=== PATIENT | female | born 1980 | race Hispanic/Latino ===

== ENCOUNTER 2023-03-18 22:32 | Emergency (ER) | payer BC ==
[~2023-03-18] VITALS: Ht 177.8 cm; Wt 196.4 kg
[2023-03-18] MEDS ORDERED: SODIUM CHLORIDE 0.9% 1000ML 1,000 ML IV STA (22:44)
[2023-03-18] MEDS ORDERED: ONDANSETRON HCL INJ 2MG/ML 2ML 2 MG/ML VIAL IV ONE (22:45)
[2023-03-18] MEDS ORDERED: FAMOTIDINE 20 MG/2 ML VIAL IV ONE ×2 (22:45→23:33)
[2023-03-18] MEDS ORDERED: KETOROLAC TROMETHAMINE 30 MG/ML VIAL IV ONE (22:45)
[2023-03-18] MEDS ORDERED: KETOROLAC TROMETHAMINE 30 MG/ML VIAL ONE (23:33)
[2023-03-18] MEDS ORDERED: ONDANSETRON HCL INJ 2MG/ML 2ML 2 MG/ML VIAL ONE (23:33)
[2023-03-18] MEDS ORDERED: SODIUM CHLORIDE 0.9% 1000ML 1,000 ML ONE (23:33)
[2023-03-18] MEDS ORDERED: TYLENOL325 MG PO (23:41)
[2023-03-18] MEDS ORDERED: IBUPROFEN200 MG PO (23:41)
== END 2023-03-19 00:12 | disposition home or self-care (01) ==
LOC: FSED 22:44
DX: R10.30 Lower abdominal pain, unspecified (principal); M54.50 Low back pain, unspecified
CPT/HCPCS: 74176; 99284; J1885; J2405; J7030

== ENCOUNTER 2024-08-14 09:52 | Observation (INO) | payer OTHER ==
[~2024-08-14] VITALS: Ht 177.8 cm; Wt 184.2 kg
[~2024-08-14 09:52] MED LIST: ACETAMINOPHEN325 M1 PO; AIRSUPRA 90-810.7 GM INH; ASCORBIC ACID500 MG PO; AZITHROMYCIN250 MG PO; BENZONATATE100 MG PO; CITRACAL-D3 ER1 EACH PO; CLONIDINE HCL0.2 MG PO; COLACE100 M1 PO; DAPTOMYCIN1000 MG/10 IV; DAPTOMYCIN500 MG IV; FEROSUL325 MG PO; FERROUS SULFAT325 MG PO; FUROSEMIDE40 MG PO; IBUPROFEN200 MG PO; MAG-OXIDE400 MG PO; METFORMIN HCL500 MG PO; METOCLOPRAMIDE10 MG PO; MIRALAX17 GM PO; MOUNJARO2.5 MG/0.5 INJ; ONDANSETRON ODT4 MG PO; ONE DAILY PLUS1 EAC1 PO; POTASSIUM CHLO20 ME1 PO; PROVENTIL HFA6.7 GM INH; SENNA S TABLET1 EACH PO; SERTRALINE HCL25 MG PO; TRANEXAMIC ACI650 MG PO; TRIAMCINOLONE A15 G3 TOP; TYLENOL325 MG PO; ULTRAM 50MG50 MG PO; ZINC SULFATE50 M1 PO
[2024-08-14 10:11] VITALS: TEMP 98.6
[2024-08-14] MEDS: MAGNESIUM/ALUMINUM/SIMETHICONE 30 ML UDC PO ONE (11:53)
[2024-08-14] MEDS: ASPIRIN 325 MG TAB PO ONE (12:15)
[2024-08-14] MEDS ORDERED: SODIUM CHLORIDE FLUSH 10 ML SYR INJ PRN (12:15)
[2024-08-14] MEDS: ASPIRIN 81 MG CHEW TAB PO ONE (12:16)
[2024-08-14] MEDS: FAMOTIDINE 20 MG TAB PO SCH (12:20)
[2024-08-14 15:40] VITALS: BP 149/88; PULSE 71; RESP 18; RESP 20; O2SAT 98
[2024-08-14] MEDS ORDERED: ESCITALOPRAM OXA5 MG PO (16:03)
[2024-08-14 16:43] VITALS: BP 152/92; PULSE 58; RESP 18; TEMP 98.1; O2SAT 100
[2024-08-14 20:00] VITALS: BP 161/55; PULSE 76; RESP 18; TEMP 98.5; O2SAT 100
[2024-08-14 21:00] VITALS: BP 161/55; PULSE 76; RESP 18; TEMP 98.5; O2SAT 100
[2024-08-15] VITALS: BP 161/93; PULSE 77; RESP 18; TEMP 97.8; O2SAT 99
[2024-08-15 04:00] VITALS: BP 144/76; PULSE 63; RESP 20; TEMP 97.7; O2SAT 99
[2024-08-15 07:22] VITALS: BP 154/77; PULSE 71; RESP 17; TEMP 97.8; O2SAT 98
[2024-08-15 07:49] LABS: CREATINE KINASE 45 IU/L (29-168)
[2024-08-15 08:00] LABS: TROPONIN I < 0.001 ng/mL (0-0.300)
[2024-08-15 08:06] VITALS: BP 154/77; PULSE 71; RESP 17; TEMP 97.8; O2SAT 98
[2024-08-15 08:18] LABS: CHOL/HDL RATIO 4.1 (3.0-3.6)
[2024-08-15] MEDS: ASPIRIN 81 MG ENTERIC COATED PO SCH (09:27)
[2024-08-15] MEDS: LISINOPRIL 10 MG TAB PO ONE (10:34)
[2024-08-15 10:54] VITALS: BP 128/69; PULSE 67; RESP 19; TEMP 97.9; O2SAT 100
[2024-08-15] MEDS ORDERED: MUPIROCIN 2% OINT 22 GM TUBE TOP SCH (12:00)
== END 2024-08-15 11:39 | disposition home or self-care (01) ==
LOC: FSED 10:01 → ERHOLD 12:06 → MED/SURG2 16:18
PROVIDERS: ADMIT Internal Medicine; ATTEND Internal Medicine
DX: I16.0 Hypertensive urgency (principal); I10 Essential (primary) hypertension; F41.0 Panic disorder [episodic paroxysmal anxiety]; R07.9 Chest pain, unspecified; R51.9 Headache, unspecified; Z63.5 Disruption of family by separation and divorce; D64.9 Anemia, unspecified; R94.31 Abnormal electrocardiogram [ECG] [EKG]; E11.9 Type 2 diabetes mellitus without complications; Z79.84 Long term (current) use of oral hypoglycemic drugs; E66.01 Morbid (severe) obesity due to excess calories; Z68.43 Body mass index [BMI] 50.0-59.9, adult; Z79.899 Other long term (current) drug therapy
CPT/HCPCS: 36415; 70450; 71045; 80053; 80061; 80307; 81003; 81025; 82550; 82553; 84484 ×2; 85025; 85379; 93005; 99252; 99284; G0378 ×2

== ENCOUNTER 2025-02-19 22:05 | Emergency (ER) | payer OTHER ==
[~2025-02-19] VITALS: Ht 177.8 cm; Wt 189.6 kg
[~2025-02-19 22:05] MED LIST changes: +ESCITALOPRAM OXA5 MG PO
[2025-02-19 22:12] VITALS: PULSE 120; RESP 20; TEMP 96.8
[2025-02-19] MEDS ORDERED: DONNATAL/LIDOCAINE/MAALOX 30 ML SUSP PO ONE (22:30)
[2025-02-19] MEDS: BELLADONNA ALK/PHENOBARBITAL 5 ML UDC PO ONE (22:52)
[2025-02-19] MEDS: LIDOCAINE VISC 2% SOLN 15 ML UDC PO ONE (22:52)
[2025-02-19] MEDS: MAGNESIUM/ALUMINUM/SIMETHICONE 30 ML UDC PO ONE (22:52)
[2025-02-19] MEDS: KETOROLAC TROMETHAMINE 30 MG/ML VIAL IV STA (22:53)
[2025-02-19] MEDS: ONDANSETRON HCL INJ 2MG/ML 2ML 2 MG/ML VIAL IV STA (22:53)
[2025-02-19] MEDS: FAMOTIDINE 20 MG/2 ML VIAL IV SCH (22:53)
[2025-02-19] MEDS ORDERED: IOPAMIDOL 370 MG/ML 100 ML INFUS..BTL INJ ONE (23:15)
[2025-02-19] MEDS: POTASSIUM CHLORIDE 20 MEQ TAB CR PO ONE (23:19)
[2025-02-20] MEDS ORDERED: Morphine 2mg Syringe 2 MG/ML SYR ONE (00:52)
[2025-02-20] MEDS: LACTATED RINGER'S 1,000 ML INJ STA (00:57)
[2025-02-20] MEDS: Morphine 4mg INJECTION 4 MG/ML INJ IV ONE (00:58)
[2025-02-20 02:22] VITALS: BP 140/68; PULSE 91; RESP 18; TEMP 98; O2SAT 96
== END 2025-02-20 02:22 | disposition home or self-care (01) ==
LOC: FSED 22:19
DX: R10.13 Epigastric pain (principal); K29.70 Gastritis, unspecified, without bleeding; R11.0 Nausea; E87.6 Hypokalemia; I10 Essential (primary) hypertension; E11.65 Type 2 diabetes mellitus with hyperglycemia; D64.9 Anemia, unspecified; K21.9 Gastro-esophageal reflux disease without esophagitis; G47.33 Obstructive sleep apnea (adult) (pediatric); F41.9 Anxiety disorder, unspecified; E66.01 Morbid (severe) obesity due to excess calories
CPT/HCPCS: 74177; 80053; 84484; 85025; 93005; 96374; 96375; 99284; J1885; J2270 ×2; J2405; J7121; Q9967

== ENCOUNTER 2025-08-06 08:24 | Emergency (ER) | payer OTHER ==
[~2025-08-06] VITALS: Ht 177.8 cm; Wt 197.1 kg
[2025-08-06 08:30] VITALS: RESP 18; TEMP 97.2
[2025-08-06] MEDS ORDERED: METHOCARBAMOL500 MG PO (08:50)
[2025-08-06] MEDS ORDERED: HYDROCODON-ACE1 EA11 PO (08:51)
[2025-08-06 09:05] VITALS: PULSE 102; O2SAT 96
== END 2025-08-06 09:05 | disposition home or self-care (01) ==
LOC: FSED 08:47
DX: M54.50 Low back pain, unspecified (principal); S39.82XA Other specified injuries of lower back, initial encounter; W07.XXXA Fall from chair, initial encounter; Y92.89 Other specified places as the place of occurrence of the external cause; I10 Essential (primary) hypertension; E11.9 Type 2 diabetes mellitus without complications; D64.9 Anemia, unspecified; K21.9 Gastro-esophageal reflux disease without esophagitis; F41.9 Anxiety disorder, unspecified; G47.33 Obstructive sleep apnea (adult) (pediatric)
CPT/HCPCS: 99284

== ENCOUNTER 2025-09-18 20:29 | Emergency (ER) | payer OTHER ==
[~2025-09-18] VITALS: Ht 177.8 cm; Wt 192.3 kg
[~2025-09-18 20:29] MED LIST changes: +HYDROCODON-ACE1 EA11 PO; +METHOCARBAMOL500 MG PO
[2025-09-18] MEDS: ONDANSETRON HCL INJ 2MG/ML 2ML 2 MG/ML VIAL IV STA (21:50)
[2025-09-18] MEDS: ACETAMINOPHEN 325 MG TAB PO ONE (21:52)
[2025-09-18] MEDS: SODIUM CHLORIDE 0.9% 1000ML 1,000 ML IV ONE (21:53)
[2025-09-18] MEDS ORDERED: IOPAMIDOL 370 MG/ML 100 ML INFUS..BTL INJ ONE (23:18)
[2025-09-19 01:33] VITALS: BP 136/76; PULSE 98; RESP 18; TEMP 98.8
[2025-09-19 06:47] VITALS: PULSE 98; RESP 18; TEMP 98.8; O2SAT 98
== END 2025-09-19 01:33 | disposition home or self-care (01) ==
LOC: FSED 21:08
DX: R50.9 Fever, unspecified (principal); B34.9 Viral infection, unspecified; R10.31 Right lower quadrant pain; I10 Essential (primary) hypertension; E11.9 Type 2 diabetes mellitus without complications; D64.9 Anemia, unspecified; K21.9 Gastro-esophageal reflux disease without esophagitis; F41.9 Anxiety disorder, unspecified; G47.33 Obstructive sleep apnea (adult) (pediatric); Z11.52 Encounter for screening for COVID-19
CPT/HCPCS: 0223U; 74177; 80048; 80076; 85025; 87400; 96374; 99284; J2405; J7030; Q9967